=== PATIENT | male | born 1965 | race Caucasian/White ===

== ENCOUNTER 2017-11-09 05:50 | Day surgery (SDC) | payer OTHER ==
[~2017-11-09] VITALS: Ht 190.5 cm; Wt 122.5 kg
[~2017-11-09 05:50] MED LIST: ALPRAZOLAM0.25 M1 PO; ALPRAZOLAM0.5 M2 PO; BENICAR20 MG PO; BUSPIRONE HCL10 MG PO; FLEXERIL PO; LOSARTAN POT25 MG PO; MEDDOSEPAK PO; METHADONE10 M1 PO; OXYCODONE20 M1 PO; VOLTAREN1%GEL TOP
[2017-11-09 07:45] VITALS: BP 128/75
== END 2017-11-09 07:55 | disposition home or self-care (01) | DRG 558 ==
LOC: ORM 05:50
PROVIDERS: ATTEND Anesthesiology Pain Medicine
PROC: 3E0U33Z Introduction of Anti-inflammatory into Joints, Percutaneous Approach (ICD-10-PCS; principal; 2017-11-09)
PROC: 3E0U3BZ Introduction of Anesthetic Agent into Joints, Percutaneous Approach (ICD-10-PCS; 2017-11-09)
DX: M70.61 Trochanteric bursitis, right hip (principal); M25.551 Pain in right hip; M76.31 Iliotibial band syndrome, right leg

== ENCOUNTER 2017-11-23 08:24 | Day surgery (SDC) | payer OTHER ==
[~2017-11-23] VITALS: Ht 190.5 cm; Wt 122.5 kg
[2017-11-23] MEDS ORDERED: METHADONE10 M1 PO (09:23)
[2017-11-23] MEDS ORDERED: FLEXERIL PO ×2 (09:24)
[2017-11-23] MEDS ORDERED: OXYCODONE20 M1 PO (09:35)
[2017-11-23 09:40] VITALS: BP 126/85
== END 2017-11-23 09:55 | disposition home or self-care (01) | DRG 558 ==
LOC: ORM 08:24
PROVIDERS: ATTEND Anesthesiology Pain Medicine
PROC: 3E0U33Z Introduction of Anti-inflammatory into Joints, Percutaneous Approach (ICD-10-PCS; principal; 2017-11-23)
PROC: 3E0U3BZ Introduction of Anesthetic Agent into Joints, Percutaneous Approach (ICD-10-PCS; 2017-11-23)
DX: M70.61 Trochanteric bursitis, right hip (principal); M25.551 Pain in right hip; M76.31 Iliotibial band syndrome, right leg

== ENCOUNTER 2018-09-06 05:58 | Day surgery (SDC) | payer MEDICAID ==
[~2018-09-06 05:58] MED LIST changes: +CELEBREX100 M1 PO
[2018-09-06 08:16] VITALS: BP 104/67
[2018-09-26] MEDS ORDERED: METHADONE10 M1 PO (09:43)
[2018-09-26] MEDS ORDERED: OXYCODONE20 M1 PO (09:44)
== END 2018-09-06 08:29 | disposition home or self-care (01) ==
LOC: ORM 05:58
PROVIDERS: ATTEND Anesthesiology Pain Medicine
DX: M76.31 Iliotibial band syndrome, right leg (principal); M70.61 Trochanteric bursitis, right hip

== ENCOUNTER → 2018-09-26 | Outpatient (REF) | payer MEDICAID ==
[2018-09-26 09:20] VITALS: BP 154/90
== END | disposition home or self-care (01) | DRG 951 ==
LOC: PAIN/MGT 09:06
PROVIDERS: ATTEND Anesthesiology Pain Medicine
DX: Z09 Encounter for follow-up examination after completed treatment for conditions other than malignant neoplasm (principal)

== ENCOUNTER → 2018-09-26 | Outpatient (REF) | END | disposition home or self-care (01) | DRG 950 | LOC: LAB 09:11 | PROVIDERS: ATTEND Anesthesiology Pain Medicine | DX: Z51.81 Encounter for therapeutic drug level monitoring (principal); Z79.899 Other long term (current) drug therapy ==

== ENCOUNTER 2019-12-19 07:08 | Day surgery (SDC) | payer MEDICAID ==
[2019-12-19 08:46] VITALS: BP 126/81
[2020-01-08] MEDS ORDERED: METHADONE10 M1 PO (10:01)
[2020-01-08] MEDS ORDERED: OXYCODONE20 M1 PO (10:02)
[2020-03-04] MEDS ORDERED: OXYCODONE20 M1 PO (11:07)
[2020-03-04] MEDS ORDERED: METHADONE10 M1 PO (11:07)
[2020-04-01] MEDS ORDERED: METHADONE10 M1 PO (11:21)
[2020-04-01] MEDS ORDERED: OXYCODONE20 M1 PO (11:22)
[2020-04-29] MEDS ORDERED: METHADONE10 M1 PO (11:34)
[2020-04-29] MEDS ORDERED: CYCLOBENZAPRINE10 MG PO (11:41)
[2020-04-29] MEDS ORDERED: OXYCODONE20 M1 PO (11:42)
== END 2019-12-19 09:00 | disposition home or self-care (01) ==
LOC: ORM 07:08
PROVIDERS: ATTEND Anesthesiology Pain Medicine
DX: M96.1 Postlaminectomy syndrome, not elsewhere classified (principal); M46.96 Unspecified inflammatory spondylopathy, lumbar region; Z01.84 Encounter for antibody response examination

== ENCOUNTER 2020-02-06 06:25 | Day surgery (SDC) | payer MEDICAID ==
[2020-02-06] MEDS ORDERED: METHADONE10 M1 PO (07:28)
[2020-02-06] MEDS ORDERED: OXYCODONE20 M1 PO (07:29)
[2020-02-06 08:15] VITALS: BP 153/93
[2020-03-04] MEDS ORDERED: OXYCODONE20 M1 PO (11:07)
[2020-03-04] MEDS ORDERED: METHADONE10 M1 PO (11:07)
[2020-04-01] MEDS ORDERED: METHADONE10 M1 PO (11:21)
[2020-04-01] MEDS ORDERED: OXYCODONE20 M1 PO (11:22)
[2020-04-29] MEDS ORDERED: METHADONE10 M1 PO (11:34)
[2020-04-29] MEDS ORDERED: CYCLOBENZAPRINE10 MG PO (11:41)
[2020-04-29] MEDS ORDERED: OXYCODONE20 M1 PO (11:42)
== END 2020-02-06 08:25 | disposition home or self-care (01) ==
LOC: ORM 06:25
PROVIDERS: ATTEND Anesthesiology Pain Medicine
DX: M96.1 Postlaminectomy syndrome, not elsewhere classified (principal); M46.96 Unspecified inflammatory spondylopathy, lumbar region; Z01.84 Encounter for antibody response examination

== ENCOUNTER 2021-05-06 06:39 | Day surgery (SDC) | payer MEDICAID ==
[~2021-05-06] VITALS: Ht 190.5 cm; Wt 120.2 kg
[~2021-05-06 06:39] MED LIST changes: +CYCLOBENZAPRINE10 MG PO
[2021-05-06] MEDS ORDERED: OXYCODONE5 M1 PO (08:09)
[2021-05-06 08:20] VITALS: BP 129/85
== END 2021-05-08 08:45 | disposition home or self-care (01) | DRG 552 ==
LOC: ORM 06:39
PROVIDERS: ATTEND Anesthesiology Pain Medicine
DX: M96.1 Postlaminectomy syndrome, not elsewhere classified (principal); M47.817 Spondylosis without myelopathy or radiculopathy, lumbosacral region

== ENCOUNTER 2021-07-01 07:21 | Day surgery (SDC) | payer MEDICAID ==
[~2021-07-01] VITALS: Ht 190.5 cm; Wt 120.2 kg
[~2021-07-01 07:21] MED LIST changes: +OXYCODONE15 MG PO; +OXYCODONE5 M1 PO
[2021-07-01 10:36] VITALS: BP 116/76
== END 2021-07-01 10:30 | disposition home or self-care (01) ==
LOC: ORM 07:21
PROVIDERS: ATTEND Anesthesiology Pain Medicine
DX: M17.12 Unilateral primary osteoarthritis, left knee (principal); M25.562 Pain in left knee

== ENCOUNTER 2022-09-08 08:00 | Day surgery (SDC) | payer OTHER ==
[2022-09-08 11:35] VITALS: BP 143/56
== END 2022-09-08 10:03 | disposition home or self-care (01) ==
LOC: PO 08:00 → ORM 08:00
PROVIDERS: ATTEND Physical Medicine & Rehabilitation
DX: M54.16 Radiculopathy, lumbar region (principal); G89.4 Chronic pain syndrome; M96.1 Postlaminectomy syndrome, not elsewhere classified; M62.838 Other muscle spasm
CPT/HCPCS: J1100; Q9967